=== PATIENT | female | born 1930 | race Caucasian/White ===

== ENCOUNTER 2018-07-10 14:37 | Inpatient (IN) | payer MEDICARE ==
[~2018-07-10] VITALS: Ht 154.9 cm; Wt 73.8 kg
--- NOTE | 2018-07-10 15:07 | NUR ---
pt to room from lobby
--- NOTE | 2018-07-10 15:17 | NUR ---
87 Y/O FEMALE PRESENTS TO ED WITH C/O RIGHT HIP PAIN. "I FELL ON THE CONCRETE TODAY. I TRIPPED OVER MY OTHER FOOT AND FELL RIGHT ON MY HIP. IT'S HURTING BAD." NO C/O N/V/D, SYNCOPE, CP, SOB. PT PLACED ON CONT PULSE OX,NIBP. SIGNIFICANT OTHER BEDSIDE.
[2018-07-10] MEDS ORDERED: SODIUM CHLORIDE FLUSH 10ML SYR IVF ONE (15:30)
[2018-07-10] MEDS ORDERED: MORPHINE SULFATE 4 MG/ML, 1ML IVPush PRN ×2 (15:30→22:00)
[2018-07-10] MEDS ORDERED: MORPHINE SULFATE 4 MG/ML, 1ML ONE ×2 (15:31→21:50)
[2018-07-10] MEDS ORDERED: ONDANSETRON 2MG/ML, 2ML ONE ×2 (15:32→21:14)
--- NOTE | 2018-07-10 15:46 | NUR ---
PIV ESTABLISHED. PT TOLERATED WITH NO COMPLICATIONS. PT TO IMAGING
[2018-07-10 16:02] LABS: BASOPHILS % (AUTO) 0 % (0-1); EOSINOPHILS # (AUTO) 0.02 x10^3/uL (0-0.4); EOSINOPHILS % (AUTO) 0 % (1-7); LYMPHOCYTES # (AUTO) 0.74 x10^3/uL (1-3.4); LYMPHOCYTES % (AUTO) 10 % (22-44); MD NO; MEAN CORPUSCULAR HEMOGLOBIN 30.2 pg (27.0-34.8); MEAN CORPUSCULAR HGB CONC 33.9 g/dL (32.4-35.8); MEAN PLATELET VOLUME 9.6 fL (7.4-10.4); MONOCYTES # (AUTO) 0.25 x10^3/uL (0.2-0.8); MONOCYTES % (AUTO) 3 % (2-9); NEUTROPHILS # (AUTO) 6.61 x10^3/uL (1.8-6.8); NEUTROPHILS % (AUTO) 87 % (42-75); PLATELET COUNT 228 x10^3/uL (130-400); RED BLOOD COUNT 4.74 x10^6/uL (3.82-5.3); RED CELL DISTRIBUTION WIDTH 14.1 % (9.6-15.2)
[2018-07-10 16:11] LABS: ALBUMIN 3.7 g/dL (3.4-5.0); ANION GAP 6 mmol/L (5-15); CALCIUM 8.9 mg/dL (8.5-10.1); CHLORIDE 107 mmol/L (98-107); CREATININE 0.81 mg/dL (0.55-1.02)
--- NOTE | 2018-07-10 16:12 | NUR ---
PT BACK FROM IMAGING
[2018-07-10] MEDS ORDERED: ONDANSETRON 2MG/ML, 2ML IVPush ONE (16:30)
--- NOTE | 2018-07-10 16:44 | NUR ---
STATES "SHE TAKES A BLOOD PRESSURE MEDICATION THAT STARTS WITH AN L. I DON'T REMEMBER THE NAME OR HOW MUCH" PT DOESN'T REMEMBER EITHER. NO ACUTE DISTRESS NOTED. PT RESTING ON GURNEY. PT STATES "THE MEDICATIONS HELPED BEFORE MY X-RAY." NO NEEDS REQUESTED AT THS TIME.
--- NOTE | 2018-07-10 17:04 | NUR ---
REPORT CALLED TO CELSA TOVAR. ALL QUESTIONS ANSWERED.
[2018-07-10] MEDS ORDERED: hydrALAzine 20 MG/ML, 1ML IVPush PRN (17:30)
[2018-07-10] MEDS ORDERED: ONDANSETRON 2MG/ML, 2ML IVPush PRN (17:30)
--- NOTE | 2018-07-10 17:37 | NUR ---
pt tranferred to room. pt left with all personal belongings.
[2018-07-10] MEDS: SODIUM CHLORIDE 0.9% 1,000 ML IV SCH ×2 (18:45→18:50)
[2018-07-10 19:28] VITALS: BP 133/86
[2018-07-10] MEDS ORDERED: FENTANYL PF 250 MCG/5ML ONE (21:13)
[2018-07-10] MEDS ORDERED: ROCURONIUM 10MG/ML,5ML ONE (21:17)
[2018-07-10] MEDS ORDERED: CEFAZOLIN 1,000 MG ONE (21:17)
[2018-07-10] MEDS ORDERED: SUCCINYLCHOLINE 20 MG/ML, 10ML ONE (21:17)
[2018-07-10] MEDS ORDERED: PROPOFOL 10 MG/ML, 20ML ONE (21:17)
[2018-07-10] MEDS ORDERED: CEFAZOLIN PMX 2GM/50ML 50 ML IVPB SCH (21:30)
[2018-07-10] MEDS ORDERED: OXYcodone 5 MG/5 ML ORAL.SOL UDC ONE (21:50)
[2018-07-10] MEDS ORDERED: hydrALAzine 20 MG/ML, 1ML IV PRN (22:00)
[2018-07-10] MEDS ORDERED: EPHEDRINE 50 MG/ML, 1ML IVPush PRN (22:00)
[2018-07-10] MEDS ORDERED: HALOPERIDOL 5 MG/ML IV PRN (22:00)
[2018-07-10] MEDS ORDERED: MEPERIDINE/PF 25MG/0.5ML IVPush PRN (22:00)
[2018-07-10] MEDS ORDERED: OXYcodone 5 MG/5 ML ORAL.SOL UDC PO PRN (22:00)
[2018-07-10] MEDS ORDERED: ONDANSETRON 2MG/ML, 2ML IV PRN (22:00)
[2018-07-10] MEDS ORDERED: DIAZEPAM 5 MG/ML, 2ML IVPush PRN (22:00)
[2018-07-10] MEDS ORDERED: HYDROmorphone 2 MG/ML, 1ML IVPush PRN (22:00)
[2018-07-10] MEDS ORDERED: ACETAMINOPHEN 325 MG TABLET PO PRN (22:00)
[2018-07-10] MEDS ORDERED: ONDANSETRON ODT 8 MG PO PRN (22:00)
[2018-07-10] MEDS ORDERED: PROMETHAZINE 25 MG/ML, 1ML IV PRN (22:00)
[2018-07-10] MEDS ORDERED: ALBUTEROL SULFATE 2.5 MG/3 ML NPPB PRN (22:00)
[2018-07-10] MEDS ORDERED: PROMETHAZINE 12.5 MG SUPP PR PRN (22:00)
[2018-07-10] MEDS ORDERED: FENTANYL PF 100 MCG/2ML IV PRN (22:00)
[2018-07-10] MEDS ORDERED: MIDAZOLAM 1 MG/ML, 2ML IV PRN (22:00)
[2018-07-10] MEDS ORDERED: LABETALOL 5MG/ML, 20ML IV PRN (22:00)
[2018-07-11] VITALS: BP 14/78
[2018-07-11] MEDS: morphine SULFATE 10 MG/ML, 1ML IVPush PRN (02:21)
[2018-07-11] MEDS: CEFAZOLIN PMX 2GM/50ML 50 ML IVPB SCH ×2 (05:14→14:00)
[2018-07-11 05:43] LABS: BASOPHILS % (AUTO) 0 % (0-1); EOSINOPHILS % (AUTO) 0 % (1-7); LYMPHOCYTES # (AUTO) 0.48 x10^3/uL (1-3.4); LYMPHOCYTES % (AUTO) 5 % (22-44); MD NO; MEAN CORPUSCULAR HEMOGLOBIN 30.1 pg (27.0-34.8); MEAN CORPUSCULAR HGB CONC 33.9 g/dL (32.4-35.8); MEAN CORPUSCULAR VOLUME 88.9 fL (80-100); MEAN PLATELET VOLUME 9.6 fL (7.4-10.4); MONOCYTES % (AUTO) 1 % (2-9); NEUTROPHILS # (AUTO) 9.21 x10^3/uL (1.8-6.8); NEUTROPHILS % (AUTO) 94 % (42-75); PLATELET COUNT 202 x10^3/uL (130-400); RED BLOOD COUNT 4.39 x10^6/uL (3.82-5.3); RED CELL DISTRIBUTION WIDTH 13.9 % (9.6-15.2)
[2018-07-11 05:45] LABS: ANION GAP 6 mmol/L (5-15); CALCIUM 8.2 mg/dL (8.5-10.1); CHLORIDE 105 mmol/L (98-107); CREATININE 0.84 mg/dL (0.55-1.02)
[2018-07-11 07:55] VITALS: BP 177/86
[2018-07-11] MEDS ORDERED: LOSA50TA14 PO (08:53)
[2018-07-11] MEDS: LOSARTAN 50MG TABLET PO SCH (09:28)
[2018-07-11 14:00] VITALS: BP 135/73
[2018-07-11] MEDS: SODIUM CHLORIDE 0.9% 1,000 ML IV SCH (14:00)
[2018-07-11] MEDS: ENOXAPARIN 40 MG/0.4 ML SQ SCH (18:00)
[2018-07-11 19:26] VITALS: BP 153/68
[2018-07-12] MEDS: morphine SULFATE 10 MG/ML, 1ML IVPush PRN (01:22)
[2018-07-12 01:24] VITALS: BP 156/81
[2018-07-12] MEDS: SODIUM CHLORIDE 0.9% 1,000 ML IV SCH (03:28)
[2018-07-12 06:04] LABS: ANION GAP 7 mmol/L (5-15); CALCIUM 7.9 mg/dL (8.5-10.1); CHLORIDE 106 mmol/L (98-107)
[2018-07-12 06:06] LABS: CREATININE 0.65 mg/dL (0.55-1.02)
[2018-07-12 07:14] VITALS: BP 134/72
[2018-07-12] MEDS: LOSARTAN 50MG TABLET PO SCH (08:32)
[2018-07-12] MEDS ORDERED: ONDA4TAB13 SL (11:00)
[2018-07-12] MEDS ORDERED: ENOX40SY4 SQ (11:00)
[2018-07-12] MEDS ORDERED: TRAM50TA2 PO (11:00)
[2018-07-12] MEDS ORDERED: HYDR-3240 PO (11:00)
[2018-07-12] MEDS ORDERED: OXYcodone IR 5MG TABLET PO PRN (12:00)
[2018-07-12] MEDS ORDERED: OXYC5TAB3 PO (12:02)
[2018-07-12 15:00] VITALS: BP 147/82
[2018-07-12] MEDS: ENOXAPARIN 40 MG/0.4 ML SQ SCH (18:13)
[2018-07-12 20:31] VITALS: BP 154/90
[2018-07-13 02:18] VITALS: BP 135/55
[2018-07-13 08:34] VITALS: BP 190/81
[2018-07-13] MEDS: LOSARTAN 50MG TABLET PO SCH (08:43)
[2018-07-13] MEDS ORDERED: BISACODYL 10 MG SUPP ONE (10:05)
[2018-07-13] MEDS ORDERED: MAGNESIUM HYDROXIDE 8%, 30ML UDC ONE (10:08)
[2018-07-13 10:20] VITALS: BP 143/77
[2018-07-13] MEDS ORDERED: MAGNESIUM HYDROXIDE 8%, 30ML UDC PO SCH (10:30)
[2018-07-13] MEDS ORDERED: BISACODYL 10 MG SUPP PR PRN (10:30)
[2018-07-13 12:31] VITALS: BP 134/74
== END 2018-07-13 13:14 | DRG 482 ==
LOC: ED 16:39 → SUATTDRO 16:44 → EDIP 17:03 → 4NOR 17:41
PROVIDERS: ADMIT Hospitalist; ATTEND Hospitalist
PROC: 0QS604Z Reposition Right Upper Femur with Internal Fixation Device, Open Approach (ICD-10-PCS; principal; 2018-07-10 21:30)
DX: S72.001A Fracture of unspecified part of neck of right femur, initial encounter for closed fracture (principal); E66.9 Obesity, unspecified; I10 Essential (primary) hypertension; W01.0XXA Fall on same level from slipping, tripping and stumbling without subsequent striking against object, initial encounter; Z90.49 Acquired absence of other specified parts of digestive tract; Z88.8 Allergy status to other drugs, medicaments and biological substances; Z88.7 Allergy status to serum and vaccine; Y93.89 Activity, other specified; Y92.89 Other specified places as the place of occurrence of the external cause; Y99.8 Other external cause status; Z68.30 Body mass index [BMI] 30.0-30.9, adult
CPT/HCPCS: 36415; 71045; 76000; 80048; 82040; 84443; 85014; 85018; 85025; 93005; 96374; 96375; C1713; G0378; J0690; J1650; J2405; J2704; J3010; J0330; J0360; J2270; J7030

== ENCOUNTER 2019-04-24 16:07 | Emergency (ER) | payer MEDICARE ==
[~2019-04-24] VITALS: Ht 154.9 cm; Wt 55.0 kg
[~2019-04-24 16:07] MED LIST: ENOX40SY4 SQ; HYDR-3240 PO; LOSA50TA14 PO; ONDA4TAB13 SL; OXYC5TAB3 PO; TRAM50TA2 PO
[2019-04-24 17:11] LABS: BASOPHILS # (AUTO) 0.05 x10^3/uL (0-0.1); BASOPHILS % (AUTO) 1 % (0-1); EOSINOPHILS # (AUTO) 0.16 x10^3/uL (0-0.4); EOSINOPHILS % (AUTO) 2 % (1-7); LYMPHOCYTES % (AUTO) 21 % (22-44); MD NO; MEAN CORPUSCULAR HEMOGLOBIN 31.2 pg (27.0-34.8); MEAN CORPUSCULAR HGB CONC 33.1 g/dL (32.4-35.8); MEAN CORPUSCULAR VOLUME 94.5 fL (80-100); MEAN PLATELET VOLUME 8.5 fL (7.4-10.4); MONOCYTES # (AUTO) 0.28 x10^3/uL (0.2-0.8); MONOCYTES % (AUTO) 3 % (2-9); NEUTROPHILS # (AUTO) 6.52 x10^3/uL (1.8-6.8); NEUTROPHILS % (AUTO) 73 % (42-75); PLATELET COUNT 311 x10^3/uL (130-400); RED CELL DISTRIBUTION WIDTH 13.9 % (9.6-15.2)
[2019-04-24 17:16] LABS: ALBUMIN 3.7 g/dL (3.4-5.0); ANION GAP 7 mmol/L (5-15); CALCIUM 9.3 mg/dL (8.5-10.1); CHLORIDE 104 mmol/L (98-107); CREATININE 0.64 mg/dL (0.55-1.02)
--- NOTE | 2019-04-24 17:17 | NUR ---
THIS IS AN 88 YO FEMALE WHO PRESENTS TO THE ER WITH CONCERNS FROM WHO IS PRIMARY CAREGIVER OF A UTI. PT HAS STRONG ODOR OF URINE. PT WEARS A BRIEF AND IS INCONTINENT. SKIN APPERAS REDDENED AROUND [facility] BUT INTACT. URINE SAMPLE OBTAINED VIA STRAIGHT CATH AND SENT TO LAB. PT RECENTLY HAD RIGHT HIP SX WITH SCREWS PLACEMENT. REPORT TO PRIMARY RN CHERELLE.
[2019-04-24 17:26] LABS: CULTURE INDICATED? YES; MICROSCOPIC INDICATED
[2019-04-24] MEDS ORDERED: CEFTRIAXONE 1,000 MG IM ONE (18:00)
[2019-04-24] MEDS ORDERED: CEFTRIAXONE 1,000 MG ONE (18:17)
[2019-04-24 18:55] VITALS: BP 169/76
--- NOTE | 2019-04-24 18:55 | NUR ---
RN x2 at bedside. Recieved report from day RN. Covered patient's medical history, current complaint and interventions. Assumed patient care. Abx administered, awaiting reevaluation by provider.
--- NOTE | 2019-04-24 18:55 | NUR ---
Patient resting in bed on a waffle mattress, at bedside. NAD noted
--- NOTE | 2019-04-24 19:33 | NUR ---
Informed of discharge. Patient relayed unable to leave at this time due to recreational vehicle temporarily being in the shop. Patient removed from monitor and allowed to get dressed. Awaiting update on transport situation.
== END 2019-04-24 19:55 | disposition home or self-care (01) ==
LOC: ED 19:00
DX: N30.00 Acute cystitis without hematuria (principal)
CPT/HCPCS: 36415; 80048; 81001; 82040; 83605; 85025; 87077; 87086; 87186; 96372; 99283; J0696